=== PATIENT | female | born 1965 | race Caucasian/White ===

== ENCOUNTER 2020-01-25 14:15 | Emergency (ER) | payer OTHER ==
[~2020-01-25] VITALS: Ht 162.6 cm; Wt 81.6 kg
[2020-01-25 14:25] VITALS: Ht 162.6 cm; Wt 81.6 kg
[2020-01-25 15:26] LABS: urine erythrocyte NEGATIVE (NEGATIVE)
[2020-01-25 15:28] LABS: BASOPHIL % 0.4 % (0-2); PLATELET COUNT 284 x10^3mcL (130-400); RED CELL DISTRIBUTION WIDTH 14.4 % (11.5-14.5)
[2020-01-25 15:45] LABS: microscopic required? YES
[2020-01-25 15:54] LABS: MAGNESIUM 1.9 mg/dL (1.8-2.4); PHOSPHOROUS 2.8 mg/dL (2.5-4.9)
[2020-01-25 16:07] LABS: CALCIUM 9.2 mg/dL (8.5-10.1); CHLORIDE SERUM 103 mmol/L (98-107); CREATININE SERUM 0.7 mg/dL (0.6-1.0); GFR1 > 60 mL/min; GLUCOSE SERUM 128 mg/dL (74-106); POTASSIUM SERUM 3.6 mmol/L (3.5-5.1); SODIUM SERUM 143 mmol/L (136-145)
[2020-01-25 16:22] LABS: ALBUMIN 3.5 g/dL (3.4-5.0); ALKALINE PHOSPHATASE 145 U/L (46-116); ALT/SGPT 27 U/L (14-59); AST/SGOT 22 U/L (15-37); LIPASE 109 IU/L (73-393); TOTAL PROTEIN, SERUM 7.7 g/dL (6.4-8.2)
[2020-01-25 17:48] VITALS: BP 120/73
== END 2020-01-25 17:48 | disposition home or self-care (01) ==
LOC: ED 14:15
PROVIDERS: Emergency Medicine
DX: K52.9 Noninfective gastroenteritis and colitis, unspecified (principal); J45.909 Unspecified asthma, uncomplicated; I11.0 Hypertensive heart disease with heart failure; I50.9 Heart failure, unspecified; E11.9 Type 2 diabetes mellitus without complications; E78.5 Hyperlipidemia, unspecified
CPT/HCPCS: 83880; C9113; J2405; Q9967

== ENCOUNTER 2020-06-03 14:47 | Emergency (ER) | payer OTHER ==
[~2020-06-03] VITALS: Ht 137.2 cm; Wt 74.4 kg
[2020-06-03 14:57] VITALS: Ht 137.2 cm; Wt 74.4 kg
[2020-06-03 16:50] VITALS: BP 141/89
== END 2020-06-03 16:50 | disposition home or self-care (01) ==
LOC: ED 14:47
DX: R10.32 Left lower quadrant pain (principal); R11.2 Nausea with vomiting, unspecified; R19.7 Diarrhea, unspecified; I10 Essential (primary) hypertension; E11.9 Type 2 diabetes mellitus without complications; E78.00 Pure hypercholesterolemia, unspecified; Z90.710 Acquired absence of both cervix and uterus; Z91.011 Allergy to milk products; Z91.013 Allergy to seafood
CPT/HCPCS: 82962; J1885; Q0162